=== PATIENT | male | born 1995 | race Caucasian/White ===

== ENCOUNTER 2017-11-08 19:29 | Emergency (ER) | payer OTHER ==
[2017-11-08] MEDS ORDERED: DIPHTH,PERTUSS(ACELL),TET 0.5 ML DISP.SYRIN IM ONE (19:59)
[2017-11-08 20:00] VITALS: BP 146/77; PULSE 65; TEMP 98.6; BMI 36.9
--- NOTE | 2017-11-08 20:01 | PDOC ---
Rapid Medical Evaluation Time Seen by Provider: 11/08/17 19:57 Medical Evaluation: Allergies Allergy/AdvReac Type Severity Reaction Status Date / Time No Known Allergies Allergy Verified 03/11/16 23:29 11/08/17 19:57 The patient presents with a chief complaint of: Stepped on a nail while walking yesterday with his R foot. Unsure of his last tetanus I have performed a brief in-person evaluation of this patient; Pertinent physical exam findings: ambulatory, in no respiratory distress. I have ordered the following: Tetanus The patient will proceed to the ED for further evaluation.
--- NOTE | 2017-11-08 22:39 | PDOC ---
History of Present Illness - General Chief Complaint: Injury Stated Complaint: INJURY Time Seen by Provider: 11/08/17 19:57 History Source: Patient Exam Limitations: No Limitations - History of Present Illness Initial Comments: CHIEF COMPLAINT: 22 y/o male stepped on a nail yesterday here for tetanus shot. HISTORY OF PRESENT ILLNESS: Patient is not a diabetic and has no complaints of foot pain/swelling. Vital signs on arrival are within normal limits. REVIEW OF SYSTEMS: GENERAL/CONSTITUTIONAL: No fever/chills. No weakness. No weight change. MUSCULOSKELETAL: No joint or muscle swelling or pain. No neck or back pain. SKIN: No rash or easy bruising. NEUROLOGIC: No headache, vertigo, loss of consciousness, or loss of sensation. PHYSICAL EXAM: VITAL_SIGNS: within normal limits GENERAL_APPEARANCE: alert, cooperative, no obvious discomfort. normal gait. MENTAL_STATUS: speech clear, oriented X 3, responds appropriately to questions. NEURO: motor intact and sensory intact in injured extremity. EXTREMITIES: good pulse in injured extremity. no obvious wound to plantar surface of right foot. No swelling, erythema or streaking to plantar aspect of right foot. SKIN: warm, dry, good color. Past History - Past Medical History Allergies/Adverse Reactions: Allergies Allergy/AdvReac Type Severity Reaction Status Date / Time No Known Allergies Allergy Verified 11/08/17 19:59 Home Medications: Ambulatory Orders NK [No Known Home Medication] 11/08/17 COPD: No - Suicide/Smoking/Psychosocial Hx Smoking History: Never smoked *Physical Exam - Vital Signs Last Vital Signs Temp Pulse Resp BP Pulse Ox 98.6 F 65 18 146/77 99 11/08/17 19:59 11/08/17 19:59 11/08/17 19:59 11/08/17 19:59 11/08/17 19:59 ED Treatment Course - Medications Given in the ED: ED Medications Discontinued Medications Generic Name Dose Route Start Last Admin Trade Name Freq PRN Reason Stop Dose Admin Diphtheria/Tetanus/Acell Pertussis 0.5 ml 11/08/17 19:59 11/08/17 22:23 Boostrix - IM 11/08/17 20:00 0.5 ml .ONCE ONE Administration Medical Decision Making - Medical Decision Making A/P: 22 y/o male here for tetanus shot after stepping on nail. Tetanus given. Pt instructed to keep foot clean. *DC/Admit/Observation/Transfer Diagnosis at time of Disposition: Foot injury Qualifiers: Encounter type: initial encounter Laterality: right Qualified Code(s): S99.921A - Unspecified injury of right foot, initial encounter - Discharge Dispostion Disposition: HOME Condition at time of disposition: Good - Referrals Referrals: Nicola Montero MD [Primary Care Provider] - - Patient Instructions Additional Instructions: Your tetanus is UTD for 10 years - Post Discharge Activity
== END 2017-11-08 23:05 | disposition home or self-care (01) ==
LOC: JERFT 19:29
PROC: 3E0234Z Introduction of Serum, Toxoid and Vaccine into Muscle, Percutaneous Approach (ICD-10-PCS; principal; 2017-11-08)
DX: S91.331A Puncture wound without foreign body, right foot, initial encounter (principal); W45.0XXA Nail entering through skin, initial encounter; Y93.89 Activity, other specified; Y92.89 Other specified places as the place of occurrence of the external cause; Y99.8 Other external cause status
CPT/HCPCS: 90715; 99281-25

== ENCOUNTER 2018-04-06 10:22 | Emergency (ER) | payer OTHER ==
[2018-04-06 10:27] VITALS: BP 127/78; PULSE 86; TEMP 98.6; BMI 83.0
--- NOTE | 2018-04-06 10:49 | PDOC ---
History of Present Illness - General Chief Complaint: Revisit, Lab Variance Stated Complaint: STD TEST Time Seen by Provider: 04/06/18 10:35 History Source: Patient Exam Limitations: No Limitations - History of Present Illness Initial Comments: CHIEF COMPLAINT: 22 y/o afebrile male with no significant PMH here for HIV test. HISTORY OF PRESENT ILLNESS: Patient states he had unprotected sex 3 months ago and just wants to make sure he is clear. He has no symptoms and the sexual partner does not have HIV or any STDs to his knowledge. Vital signs on arrival are within normal limits. REVIEW OF SYSTEMS: GENERAL/CONSTITUTIONAL: No fever/chills. No weakness. No weight change. HEAD, EYES, EARS, NOSE AND THROAT: No change in vision. No ear pain or discharge. No sore throat. CARDIOVASCULAR: No chest pain or shortness of breath. RESPIRATORY: No cough, wheezing, or hemoptysis. GASTROINTESTINAL: No nausea, vomiting, diarrhea. GENITOURINARY: No dysuria, frequency, or change in urination. MUSCULOSKELETAL: No joint or muscle swelling or pain. No neck or back pain. SKIN: No rash or easy bruising. NEUROLOGIC: No headache, vertigo, loss of consciousness, or loss of sensation. PHYSICAL EXAM: GENERAL: The patient is awake, alert, and fully oriented, in no acute distress. EXTREMITIES: Normal range of motion, no edema. NEUROLOGICAL: Normal speech, normal gait. CN II-XII grossly intact. SKIN: Warm, dry, normal turgor, no rashes or lesions noted. Past History - Past Medical History Allergies/Adverse Reactions: Allergies Allergy/AdvReac Type Severity Reaction Status Date / Time No Known Allergies Allergy Verified 04/06/18 10:23 Home Medications: Ambulatory Orders NK [No Known Home Medication] 11/08/17 COPD: No - Suicide/Smoking/Psychosocial Hx Smoking History: Never smoked *Physical Exam - Vital Signs Last Vital Signs Temp Pulse Resp BP Pulse Ox 98.6 F 86 16 127/78 99 04/06/18 10:24 04/06/18 10:24 04/06/18 10:24 04/06/18 10:24 04/06/18 10:24 Medical Decision Making - Medical Decision Making A/P: 22 y/o male here for HIV testing. HIV - negative The patient verbalizes understanding of all instructions, has no further questions and is awaiting discharge. *DC/Admit/Observation/Transfer Diagnosis at time of Disposition: Screen for STD (sexually transmitted disease) - Discharge Dispostion Disposition: HOME Condition at time of disposition: Good - Referrals - Patient Instructions Printed Discharge Instructions: Facts About Sexually Transmitted Infections, How to Detect and Treat STDs Additional Instructions: Discharge Instructions: -Your HIV test was negative - Post Discharge Activity
== END 2018-04-06 13:11 | disposition home or self-care (01) ==
LOC: JERFT 10:22
DX: Z11.4 Encounter for screening for human immunodeficiency virus [HIV] (principal); Z11.3 Encounter for screening for infections with a predominantly sexual mode of transmission
CPT/HCPCS: 36415; 87389; 99281-25

== ENCOUNTER 2019-04-26 02:02 | Emergency (ER) | payer OTHER ==
[2019-04-26 02:54] VITALS: BP 126/72; PULSE 85; TEMP 97.7; BMI 60.3
[2019-04-26] MEDS ORDERED: CYCLOBENZAPRINE HCL 10 MG TABLET (FP) PO ONE (03:27)
[2019-04-26] MEDS ORDERED: KETOROLAC TROMETHAMINE 60 MG/2 ML VIAL IM ONE (03:27)
--- NOTE | 2019-04-26 03:28 | PDOC ---
Attending Attestation - Resident Resident Name: Anuel Lezama - ED Attending Attestation I have performed the following: I have examined & evaluated the patient, The case was reviewed & discussed with the resident, I agree w/resident's findings & plan - HPI HPI: 04/26/19 05:25 Pt comes with right paraspinal mid to low back pain. 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 Again he went to work yesterday and felt a twinge of pain. Pain is paraspinal; doesn't incolved the mid spine, and doesn't radiate anywhere. 04/28/19 01:30 - Physicial Exam PE: 04/28/19 01:30 Agree with resident exam. - Medical Decision Making 04/28/19 01:32 Pt is stable for discharge with muscle relaxants and NSAIDS.
[2019-04-26] MEDS ORDERED: KETOROLAC TROMETHAMINE 60 MG/2 ML VIAL ONE (03:31)
[2019-04-26] MEDS ORDERED: CYCLOBENZAPRINE HCL 10 MG TABLET (FP) ONE (03:32)
--- NOTE | 2019-04-26 03:34 | PDOC ---
History of Present Illness - General Chief Complaint: Back Pain Stated Complaint: BACK PAIN Time Seen by Provider: 04/26/19 03:08 History Source: Patient Exam Limitations: No Limitations - History of Present Illness Initial Comments: 04/26/19 03:33 24M with no PMH who presents to the ER with complaints of back pain. 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 He states that he felt a strain in his R lower back. He states that the pain went away and returned tonight. He denies bowel/bladder incontinence, fever, chills, IVDA, saddle anesthesia. Past History - Past Medical History Allergies/Adverse Reactions: Allergies Allergy/AdvReac Type Severity Reaction Status Date / Time No Known Allergies Allergy Verified 04/26/19 02:55 Home Medications: Ambulatory Orders NK [No Known Home Medication] 04/26/19 COPD: No - Suicide/Smoking/Psychosocial Hx Smoking History: Never smoked Information on smoking cessation initiated: No Hx Alcohol Use: No Drug/Substance Use Hx: No Review of Systems - Review of Systems Able to Perform ROS?: Yes Is the patient limited Cam[place]onian proficient: No Constitutional: No: Chills, Fever Musculoskeletal: Yes: Back Pain Neurological: No: Numbness, Paresthesia, Tingling, Weakness, Ataxia, Dizziness *Physical Exam - Vital Signs Last Vital Signs Temp Pulse Resp BP Pulse Ox 97.7 F 85 20 126/72 99 04/26/19 02:52 04/26/19 02:52 04/26/19 02:52 04/26/19 02:52 04/26/19 02:52 - Physical Exam Comments: 04/26/19 04:41 GENERAL: Well developed, well nourished. Awake and alert. No acute distress. HEENT: Normocephalic, atraumatic. Hearing grossly normal. Moist mucous membranes. PERRLA, EOMI. No conjunctival pallor. Sclera are non-icteric. Oropharynx is clear. NECK: Supple. Full ROM. No JVD. MUSCULOSKELETAL: Normal range of motion at all joints. No midline spinal tenderness. TTP in R SI joint. EXTREMITIES: No cyanosis. No clubbing. No edema. No calf tenderness or swelling. SKIN: Warm and dry. Normal capillary refill. No rashes. No jaundice. NEUROLOGICAL: Alert, awake, appropriate. Cranial nerves 2-12 grossly intact. No deficits to light touch and temperature in lower extremities. 5/5 strength in quadriceps, hamstrings, and gastrocnemius. Normal speech. Gait is normal without ataxia. PSYCHIATRIC: Cooperative. Good eye contact. Appropriate mood and affect. Medical Decision Making - Medical Decision Making 04/26/19 04:41 24M with no PMH who presents with R low back pain x 3 days. Symptoms resolved with toradol and flexeril. Will d/c with naproxen and PCP f/u. *DC/Admit/Observation/Transfer Diagnosis at time of Disposition: Low back pain Qualifiers: Chronicity: acute Back pain laterality: right Sciatica presence: without sciatica Qualified Code(s): M54.5 - Low back pain - Discharge Dispostion Disposition: HOME Condition at time of disposition: Stable Decision to Admit order: No - Referrals Referrals: Romulo Birch MD [Primary Care Provider] - - Patient Instructions Printed Discharge Instructions: DI for Low Back Pain Additional Instructions: Your ER visit is not complete until your follow up with your primary care physician. Please follow up with your primary care physician in 1-2 days. Please return to the ER if you have any signs or symptoms of chest pain, shortness of breath, uncontrollable fever, chills, nausea, vomiting, numbness, tingling, or weakness in any part of your body, changes in vision, or slurred speech. Please take your medications as prescribed. Please return to the ER if symptoms persist, worsen, or new symptoms arise. - Post Discharge Activity
== END 2019-04-26 05:24 | disposition home or self-care (01) ==
LOC: JER 02:02
PROC: 3E0234Z Introduction of Serum, Toxoid and Vaccine into Muscle, Percutaneous Approach (ICD-10-PCS; principal; 2019-04-26)
PROC: 3E0233Z Introduction of Anti-inflammatory into Muscle, Percutaneous Approach (ICD-10-PCS; 2019-04-26)
DX: M54.5 Low back pain (principal); X50.0XXA Overexertion from strenuous movement or load, initial encounter; Y93.H3 Activity, building and construction; Y92.69 Other specified industrial and construction area as the place of occurrence of the external cause; Y99.0 Civilian activity done for income or pay
CPT/HCPCS: 90471; 96372; 99282-25